=== PATIENT | female | born 1990 | race Caucasian/White ===

== ENCOUNTER 2016-12-03 20:19 | Emergency (ER) | payer MEDICAID ==
--- NOTE | 2016-12-03 22:03 | ER Document Report ---
ED Oral Problem - General Chief Complaint: Toothache Stated Complaint: HEAD PAIN Time Seen by Provider: 12/03/16 21:02 Mode of Arrival: Ambulatory Information source: Patient TRAVEL OUTSIDE OF THE [place] IN LAST 30 DAYS: No - HPI Patient complains to provider of: Toothache Onset: Other Onset: Gradual Quality of pain: Pressure Severity: Moderate Associated symptoms: Facial pain, Toothache. denies: Chills, Cough, Decreased appetite, Dental decay, Difficulty speaking, Drainage, Drooling, Earache, Fever , Headache, Jaw pain, Short of breath, Sweaty, Tongue swelling, Unable to swallow, White patches in mouth Notes: Patient arrives with complaints of left upper dental pain. She states that it has been sensitive for the last few months, over the last week it has gotten much more painful. Now she is having pain radiating up into the left cheek area. No swelling. No redness. No fever. No difficulty breathing or swallowing. No nausea, vomiting, diarrhea. She denies any other complaints at this time. She recently moved back to [place] but is not established with a dentist here. - Related Data Allergies/Adverse Reactions: No Known Allergies Allergy (Verified 09/25/14 11:34) Past Medical History - Social History Smoking Status: Unknown if Ever Smoked Family History: Reviewed & Not Pertinent Patient has suicidal ideation: No Patient has homicidal ideation: No Renal/ Medical History: Denies: Hx Peritoneal Dialysis Past Surgical History: Reports: Hx Oral Surgery - Immunizations Immunizations up to date: Yes Hx Diphtheria, Pertussis, Tetanus Vaccination: Yes Review of Systems - Review of Systems -: Yes All other systems reviewed and negative Physical Exam - Notes Notes: GENERAL: alert, cooperative, nontoxic, no distress. HEAD: normocephalic, atraumatic EYES: conjunctiva pink without discharge, no external redness or swelling. EARS: no external swelling, no external redness TMs normal. No external swelling. No mastoiditis. NOSE: atraumatic, no external swelling MOUTH/THROAT: mucous membranes moist and pink. No obvious abscess or swelling to the gums. No obvious dental decay or fracture. Tenderness to the left upper second molar. No facial swelling. No facial redness. No trismus or drooling. No sublingual swelling or induration. NECK: soft, supple, full range of motion, no meningismus. CHEST: no distress, lungs clear and equal throughout. No wheezing, rales, rhonchi. CARDIAC: regular rate and rhythm, no murmur, normal capillary refill, normal pulses. BACK: full range of motion, no CVA tenderness. EXTREMITIES: full range of motion of all extremities. No redness, no swelling. NEURO: alert and oriented 3, no focal deficits, full range of motion of all extremities. PYSCH: appropriate mood, affect. Patient is cooperative. SKIN: pink, warm, dry, no rash. Course - Re-evaluation Re-evalutation: 12/03/16 22:01 Patient is nontoxic appearing with stable vitals. The patient has had dental pain for the last few months which is worsened over the last week. No fever. No distress. No obvious abscess. She has no facial swelling. She is nontoxic appearing. Patient will be discharged home on [place], instructions to follow-up with a dentist at the next available appointment. Follow-up sooner for increased pain, fever, redness, swelling, difficulty breathing or swallowing, or any further concerns. The patient is noted to have elevated blood pressure during today's emergency department visit. The patient was informed of this finding. The patient was instructed that this may be related to pre-hypertension and requires further evaluation with a primary care provider. The patient has no hypertensive symptoms at this time. The patient's emergency department workup and current diagnosis were explained to the patient and or family. Follow-up instructions were provided. Medications if prescribed were discussed. Instructions for when to return to the emergency department including specific worrisome symptoms were discussed with the patient and/or family. Discharge - Discharge Clinical Impression: Pain, dental Condition: Stable Disposition: HOME, SELF-CARE Instructions: [facility], Toothache ([facility]), Dentist Additional Instructions: Take medications as prescribed. Follow-up with a dentist at the next available appointment. Follow-up sooner for increased pain, fever, redness, swelling, difficulty breathing or swallowing, or any further concerns. Your blood pressure was elevated during today's visit. Have this rechecked with your doctor. Prescriptions: Diclofenac Sodium [Voltaren 50 Mg Tablet.] 50 mg PO BID #20 tablet. Penicillin V Potassium [Penicillin Vk 500 mg Tablet] 500 mg PO BID #20 tablet Forms: Elevated Blood Pressure Referrals: [facility] [Provider Group] - Follow up as needed [facility] [Provider Group] - Follow up as needed
[2016-12-03] MEDS ORDERED: TRAMADOL HCL 50 MG TABLET PO ONE (22:15)
[2016-12-03] MEDS ORDERED: PENICILLIN V POTASSIUM 500 MG TABLET PO ONE (22:15)
== END 2016-12-03 22:27 | disposition home or self-care (01) ==
LOC: ER 20:19
DX: K08.89 Other specified disorders of teeth and supporting structures (principal); R03.0 Elevated blood-pressure reading, without diagnosis of hypertension
CPT/HCPCS: 99282; J3490

== ENCOUNTER 2017-03-14 01:00 | Emergency (ER) | payer MEDICAID ==
--- NOTE | 2017-03-14 01:23 | ER Document Report ---
ED Medical Screen (RME) - General Chief Complaint: OB Problem (<20wks) Stated Complaint: STOMACH CRAMPS Time Seen by Provider: 03/14/17 01:15 Mode of Arrival: Ambulatory Information source: Patient TRAVEL OUTSIDE OF THE [place] IN LAST 30 DAYS: No - HPI Patient complains to provider of: PREG, PELVIC PAIN Notes: 03/14/17 01:21 Patient arrives with complaints of lower abdominal pain. The patient states that she is currently . She is a with 1 prior miscarriage last year. States her last normal menstrual period was February 05, 2017. She has had 2 positive tests at home. She states that today she developed some lower abdominal pain that is progressively getting worse. She denies any nausea, vomiting, diarrhea. No vaginal bleeding or discharge. States that she recently got over a yeast infection. No dysuria or hematuria. Patient is nontoxic appearing but does appear to be uncomfortable. She has tenderness across her pelvis on this limited exam done in the triage chair. Patient will have blood work, urine, quantitative hCG, blood type, transvaginal ultrasound to rule out ectopic ordered. Patient was evaluated in triage and was medically screened. Any pertinent orders based on the patient's complaints were ordered at this time. Patient will require further evaluation and will be taken to a room for further evaluation by another provider. This was explained to the patient and/or family at this time. - Related Data Allergies/Adverse Reactions: No Known Allergies Allergy (Verified 03/14/17 01:01) Past Medical History Renal/ Medical History: Denies: Hx Peritoneal Dialysis Past Surgical History: Reports: Hx Oral Surgery - Immunizations Immunizations up to date: Yes Hx Diphtheria, Pertussis, Tetanus Vaccination: Yes Physical Exam - Vital signs Vitals: Temp Pulse Resp BP Pulse Ox 97.6 F 84 18 136/88 H 99 03/14/17 01:07 03/14/17 01:07 03/14/17 01:07 03/14/17 01:07 03/14/17 01:07 Course - Vital Signs Vital signs: Temp Pulse Resp BP Pulse Ox 97.6 F 84 18 136/88 H 99 03/14/17 01:07 03/14/17 01:07 03/14/17 01:07 03/14/17 01:07 03/14/17 01:07
[2017-03-14 02:35] LABS: ABSOLUTE BASOPHILS # (AUTO) 0.1 10^3/uL (0.0-0.2); ABSOLUTE EOSINOPHILS # (AUTO) 0.3 10^3/uL (0.0-0.6); ABSOLUTE LYMPHOCYTES (AUTO) 4.1 10^3/uL (0.5-4.7); ABSOLUTE MONOCYTES (AUTO) 0.8 10^3/uL (0.1-1.4); ABSOLUTE NEUT (AUTO) 7.7 10^3/uL (1.7-8.2); BASOPHILS % (AUTO) 0.5 % (0-2); EOSINOPHILS % (AUTO) 2.4 % (0-6); HEMATOCRIT 39.7 % (36.0-47.0); HEMOGLOBIN 13.3 g/dL (12.0-15.5); LYMPHOCYTES % (AUTO) 31.4 % (13-45); MEAN CORPUSCULAR HEMOGLOBIN 27.5 pg (27.0-33.4); MEAN CORPUSCULAR HGB CONC 33.5 g/dL (32.0-36.0); MEAN CORPUSCULAR VOLUME 82 fl (80-97); MONOCYTES % (AUTO) 6.3 % (3-13); PLATELET COUNT 303 10^3/uL (150-450); RED BLOOD COUNT 4.83 10^6/uL (3.72-5.28); RED CELL DISTRIBUTION WIDTH 13.3 % (11.5-14.0); SEGMENTED NEUTROPHILS % (AUTO) 59.4 % (42-78); TOTAL CELLS COUNTED % (AUTO) 100 %
[2017-03-14 02:41] LABS: APPEARANCE,URINE CLEAR; BILIRUBIN,URINE NEGATIVE (NEGATIVE); COLOR,URINE YELLOW; GLUCOSE, URINE NEGATIVE (NEGATIVE); KETONES,URINE NEGATIVE (NEGATIVE); LEUKOCYTE ESTERASE,URINE NEGATIVE (NEGATIVE); NITRITE,URINE NEGATIVE (NEGATIVE); PROTEIN,URINE NEGATIVE (NEGATIVE); URINE SPECIFIC GRAVITY 1.014; UROBILINOGEN,URINE NEGATIVE mg/dL (<2.0)
[2017-03-14 02:54] LABS: ALANINE AMINOTRANSFERASE 29 U/L (9-52); ALBUMIN 4.6 g/dL (3.5-5.0); ALKALINE PHOSPHATASE 66 U/L (38-126); ANION GAP 13 (5-19); ASPARTATE AMINO TRANSFERASE 19 U/L (14-36); BILIRUBIN,DIRECT 0.2 mg/dL (0.0-0.4); BILIRUBIN,TOTAL 0.5 mg/dL (0.2-1.3); BLOOD UREA NITROGEN 11 mg/dL (7-20); CALCIUM 10.4 mg/dL (8.4-10.2); CARBON DIOXIDE 20 mmol/L (22-30); CHLORIDE 106 mmol/L (98-107); GLUCOSE 102 mg/dL (75-110); LIPASE 49.5 U/L (23-300); POTASSIUM 3.7 mmol/L (3.6-5.0); SODIUM 139.3 mmol/L (137-145); TOTAL PROTEIN 7.3 g/dL (6.3-8.2)
--- NOTE | 2017-03-14 03:05 | RADIOLOGY REPORT (SQ) ---
EXAM DESCRIPTION: U/S OB TRANSVAG W/DOPPLER CLINICAL HISTORY: 26 years Female, PREG, PELVIC PAIN COMPARISON: None. TECHNIQUE: Complete transvaginal first trimester obstetrical ultrasound with Limited color and spectral Doppler imaging of the ovaries. FINDINGS: The uterus measures 8.7 x 5.3 x 4.5 cm. Cervical length of 2.2 cm. Within the endometrial canal there is a cystic structure measuring 0.54 cm which may represent a gestational sac with an estimated gestational age of 5 weeks, 2 days. No pole or yolk sac identified. Hypoechoic region within the endometrium measuring 1.1 cm may represent a subchorionic hemorrhage. No free pelvic fluid. The right ovary measures 3.5 x 2.4 x 2.7 cm. The left ovary measures 2.3 x 1.9 x 1.9 cm. Limited color and spectral Doppler images demonstrate flow within the ovaries bilaterally. IMPRESSION: 1. Within the endometrium there is a possible gestational sac with an estimated gestational age of 5 weeks, 2 days. Differential considerations include normal early , anembryonic , and pseudogestational sac of ectopic . No sonographic evidence of adnexal ectopic . 2. 1.1 cm fluid collection within the endometrium may represent a subchorionic hemorrhage. Close continued clinical, laboratory, and sonographic follow-up recommended.
--- NOTE | 2017-03-14 03:25 | ER Document Report ---
ED GI/ - General Mode of Arrival: Ambulatory Information source: Patient TRAVEL OUTSIDE OF THE [place] IN LAST 30 DAYS: No - HPI Patient complains to provider of: Abdominal pain. No: Vaginal bleeding Onset: This evening Vaginal bleeding (Compared to normal period): None Associated symptoms: Other - see notes above <ТАТЬЯНА FRANKS - Last Filed: 03/14/17 03:21> <SHAUNA HARMON - Last Filed: 03/14/17 04:44> - General Chief Complaint: OB Problem (<20wks) Stated Complaint: STOMACH CRAMPS Time Seen by Provider: 03/14/17 01:15 Notes: 26 year old female (A1) presents to the ED complaining of lower abdominal cramping that started earlier this evening. Patient denies any vaginal bleeding. Patient reports that she recently recovered from a yeast infection. Patient's last menstrual period was 02/05/2017. (ТАТЬЯНА FRANKS) - Related Data Allergies/Adverse Reactions: No Known Allergies Allergy (Verified 03/14/17 01:01) Past Medical History - General Information source: Patient - Social History Smoking Status: Never Smoker Family History: Reviewed & Not Pertinent Patient has suicidal ideation: No Patient has homicidal ideation: No Renal/ Medical History: Denies: Hx Peritoneal Dialysis Past Surgical History: Reports: Hx Oral Surgery - Immunizations Immunizations up to date: Yes Hx Diphtheria, Pertussis, Tetanus Vaccination: Yes <ТАТЬЯНА FRANKS - Last Filed: 03/14/17 03:21> Review of Systems - Review of Systems Constitutional: No symptoms reported EENT: No symptoms reported Cardiovascular: No symptoms reported Respiratory: No symptoms reported Gastrointestinal: See HPI, Abdominal pain Genitourinary: No symptoms reported Female Genitourinary: See HPI, Last menstrual period - 02/05/2017, . denies: Vaginal bleeding Musculoskeletal: No symptoms reported Skin: No symptoms reported Hematologic/Lymphatic: No symptoms reported Neurological/Psychological: No symptoms reported -: Yes All other systems reviewed and negative <ТАТЬЯНА FRANKS - Last Filed: 03/14/17 03:21> Physical Exam <ТАТЬЯНА FRANKS - Last Filed: 03/14/17 03:21> <SHAUNA HARMON - Last Filed: 03/14/17 04:44> - Vital signs Vitals: Temp Pulse Resp BP Pulse Ox 97.6 F 84 18 136/88 H 99 03/14/17 01:07 03/14/17 01:07 03/14/17 01:07 03/14/17 01:07 03/14/17 01:07 - Notes Notes: GENERAL: Alert, interacts well. No acute distress. HEAD: Normocephalic, atraumatic. EYES: Pupils equal, round, and reactive to light. Extraocular movements intact. ENT: Oral mucosa moist, tongue midline. NECK: Full range of motion. Supple. Trachea midline. LUNGS: Clear to auscultation bilaterally, no wheezes, rales, or rhonchi. No respiratory distress. HEART: Regular rate and rhythm. No murmurs, gallops, or rubs. ABDOMEN: Soft. Non-distended. Bowel sounds present in all 4 quadrants. Tenderness to palpation of the lower abdomen. EXTREMITIES: Moves all 4 extremities spontaneously. No edema, radial pulses 2/4 bilaterally. No cyanosis. NEUROLOGICAL: Alert and oriented x3. Normal speech. PSYCH: Normal affect, normal mood. SKIN: Warm, dry, normal turgor. No rashes or lesions noted. (ТАТЬЯНА FRANKS) Course - Laboratory Result Diagrams: 03/14/17 02:10 03/14/17 02:10 <ТАТЬЯНА FRANKS - Last Filed: 03/14/17 03:21> - Laboratory Result Diagrams: 03/14/17 02:10 03/14/17 02:10 <SHAUNA HARMON - Last Filed: 03/14/17 04:44> - Re-evaluation Re-evalutation: 03/14/17 03:36 CBC shows leukocytosis at 13.0 but there is no sign or source of infection, CMP grossly unremarkable, beta-hCG is positive but it is only 1697.4, she has a very early , there is small blood but no signs of infection in the urine, patient is O+ RhoGam is not indicated, transvaginal ultrasound shows possible gestational sac with an estimated gestational age of 5 weeks 2 days, differential consideration includes early normal , an embryonic , and pseudo-gestational sac of ectopic . There is otherwise no evidence of adnexal ectopic . There is also 1.1 cm fluid collection within the endometrium that may represent a subchorionic hemorrhage. Patient made aware of these findings and the possibility of impending miscarriage. Patient recommended to have quantitative beta-hCG repeated in 2 days, complete pelvic rest, no sex until followed up by OB. Patient will be discharged home. (SHAUNA HARMON) - Vital Signs Vital signs: Temp Pulse Resp BP Pulse Ox 97.6 F 98 14 106/54 L 100 03/14/17 01:07 03/14/17 04:01 03/14/17 04:01 03/14/17 04:01 03/14/17 04:01 - Laboratory Laboratory results interpreted by me: 03/14/17 03/14/17 03/14/17 01:40 02:10 02:10 WBC 13.0 H Carbon Dioxide 20 L Calcium 10.4 H Beta HCG, Quant 1697.40 H Urine Blood SMALL H Urine HCG, Qual POSITIVE H Discharge <ТАТЬЯНА FRANKS - Last Filed: 03/14/17 03:21> <SHAUNA HARMON - Last Filed: 03/14/17 04:44> - Discharge Clinical Impression: First trimester , Pelvic pain Subchorionic hemorrhage in first trimester Qualifiers: Fetus number: single or unspecified fetus Qualified Code(s): O41.8X10 - Other specified disorders of amniotic fluid and membranes, first trimester, not applicable or unspecified Condition: Stable Disposition: HOME, SELF-CARE Additional Instructions: Today we found a subchorionic hemorrhage. This is a small amount of bleeding in your uterus near the fetus. It increases your risk of miscarriage. Today we do not see any evidence of miscarriage. Today we found a gestational sac, this is evidence of where the fetus will go but we did not find a fetus yet. It is very important that you follow-up as an outpatient with the [facility] of your choice to have your quantitative hCG repeated. This is your hormone. It should double in approximately 2-3 days. You may not have sex or put anything in the vagina until [facility] has cleared you to do so. You may have small traces of bleeding, this can be normal. If you develop large amounts of bleeding or clots please return to the emergency department. You are O+. You do not need RhoGam. Referrals: JOANNA CRANE MD [ACTIVE STAFF] - Follow up as needed PHILOMENA AGUAYO MD [ACTIVE STAFF] - Follow up as needed Scribe Attestation: 03/14/17 04:44 I personally performed the services described in the documentation, reviewed and edited the documentation which was dictated to the scribe in my presence, and it accurately records my words and actions. (SHAUNA HARMON) Scribe Documentation - Scribe Written by Shielaibe:: Camacho Macdonald, 03/14/2017 0325 acting as scribe for :: Varghese <ТАТЬЯНА FRANKS - Last Filed: 03/14/17 03:21>
[2017-03-14 04:02] VITALS: BP 106/54
== END 2017-03-14 04:00 | disposition home or self-care (01) ==
LOC: ER 01:00
DX: O41.8X10 Other specified disorders of amniotic fluid and membranes, first trimester, not applicable or unspecified (principal); R10.30 Lower abdominal pain, unspecified; R10.2 Pelvic and perineal pain; Z3A.01 Less than 8 weeks gestation of pregnancy
CPT/HCPCS: 36415; 76817; 80053; 81001; 81025; 83690; 84702; 85025; 86900; 86901; 93976; 99284

== ENCOUNTER → 2017-04-24 | Outpatient (CLI) | payer SELFPAY ==
--- NOTE | 2017-04-24 16:26 | RADIOLOGY REPORT (SQ) ---
EXAM DESCRIPTION: U/S OB TRANSVAGINAL W/O DOP COMPLETED DATE/TIME: 04/24/2017 2:48 pm REASON FOR STUDY: ENCOUNTER FOR SUPERVISION OF OTHER NORMAL , FIRST TRIMESTER Z34.81 ENCOU NTER FOR SUPRVSN OF NORMAL , FIRST TRIM COMPARISON: None. TECHNIQUE: Transvaginal static and realtime grayscale images acquired of the pelvis. Additional edmar cted spectral and color Doppler images recorded. All images stored on PACs. bHCG: Not applicable. LIMITATIONS: None. FINDINGS: FETUS: EGA: 11 week 1 day. JEREMÍAS: 11/12/2017. FHR: 171 beats per minute. DUSTIN: Adequate amount. CERVICAL LENGTH: 3.3 cm. Closed. UTERUS: No masses. RIGHT ADNEXA: Ovary not identified. No adnexal free fluid. No adnexal masses. LEFT ADNEXA: Ovary not identified. No adnexal free fluid. No adnexal masses. FREE FLUID: None. OTHER: No other significant finding. IMPRESSION: LIVING INTRAUTERINE . ESTIMATED GESTATIONAL AGE:11 WEEK 1 DAY. Trimester of : First trimester - 0 to 13 weeks. TECHNICAL DOCUMENTATION: JOB ID: [id number] [facility]- All Rights Reserved Reading location - IP/workstation name: [email or web address]
== END ==
LOC: RAD 13:53
PROVIDERS: ATTEND Nurse Practitioner Women's Health
DX: Z34.81 Encounter for supervision of other normal pregnancy, first trimester (principal)
CPT/HCPCS: 76817